=== PATIENT | male | born 1975 | race Caucasian/White ===

== ENCOUNTER 2022-04-19 10:02 | Outpatient (CLI) | payer BC, SELFPAY | END 2022-04-19 10:03 | disposition home or self-care (01) | PROVIDERS: Visit Provider Surgery | DX: Z12.11 Encounter for screening for malignant neoplasm of colon (principal); K63.5 Polyp of colon; K62.1 Rectal polyp; K64.4 Residual hemorrhoidal skin tags; Z86.010 Personal history of colon polyps; Z98.890 Other specified postprocedural states | CPT/HCPCS: 45385; 88305; 99153; J1200; J2250; J3010 ==

== ENCOUNTER 2022-05-23 14:55 | Outpatient (REF) | payer BC, SELFPAY | END 2022-05-23 14:56 | disposition home or self-care (01) | LOC: NPINS 14:55 | PROVIDERS: PCP Nurse Practitioner; Visit Provider Nurse Practitioner | DX: C64.9 Malignant neoplasm of unspecified kidney, except renal pelvis (principal) | CPT/HCPCS: 87086 ==

== ENCOUNTER 2023-10-17 08:38 | Outpatient (CLI) | payer BC, SELFPAY | END 2023-10-17 08:39 | disposition home or self-care (01) | LOC: NFLDREF 10-18 10:24 | PROVIDERS: PCP Nurse Practitioner; Referring Provider Nurse Practitioner; Visit Provider Family Medicine | DX: Z00.00 Encounter for general adult medical examination without abnormal findings (principal); Z13.1 Encounter for screening for diabetes mellitus; Z13.6 Encounter for screening for cardiovascular disorders | CPT/HCPCS: 80061; 82947 ==